=== PATIENT | female | born 1945 | race American Indian/Alaskan Native ===

== ENCOUNTER 2016-12-12 14:35 | Outpatient (CLI) | payer MEDICARE ==
--- NOTE | 2016-12-12 15:22 | Cat Scan Report ---
CRANIAL CT SCAN: Headaches. Serial contiguous axial images were obtained through the cranium. Intravenous contrast material was not administered. The ventricles are normal in size and appearance. There is no mass effect or midline shift. No areas of abnormally increased or decreased attenuation are seen. No mass lesion is seen. The mastoid air cells and visualized portions of the sinuses are normal. IMPRESSION: Cranial CT scan within normal limits.
== END 2016-12-12 14:36 | disposition home or self-care (01) ==
LOC: SPVIMAG 14:35
PROVIDERS: ATTEND Internal Medicine
DX: R51 Headache (principal)
CPT/HCPCS: 70450